=== PATIENT | male | born 1990 | race Caucasian/White ===

== ENCOUNTER 2017-06-29 22:56 | Emergency (ER) | payer SELFPAY ==
[2017-06-29] MEDS ORDERED: RX INFO: IV CONTRAST WAS GIVEN 1 EACH MISC MISCELLANE PRN (23:09)
[2017-06-29] MEDS ORDERED: KETOROLAC 30 MG/ML 1 ML VIAL IVP STA (23:12)
--- NOTE | 2017-06-29 23:21 | ED ---
ENT HPI - General Chief complaint: ENT Stated complaint: swollen throat Time Seen by Provider: 06/29/17 23:02 Source: patient Mode of arrival: ambulatory Limitations: no limitations - History of Present Illness Initial comments: Patient is a 27-year-old male presents with chief complaint sore throat for 2 days. Patient says that he feels his glands are swollen in the anterior lateral aspect of his neck. Patient admits to a subjective fever though he has not taken his temperature. Patient admits the pain is worse on the left side of his neck and the right. He states that there are sick contacts at work. He cannot identify any aggravating or alleviating factors. Timing is constant. Patient does state that it is difficult to swallow secondary to pain. He does not have any difficulty breathing. - Related Data Previous Rx's Medication Instructions Recorded RX: Penicillin V Potassium [Pen 500 mg PO TID #30 tablet 06/29/17 Vee K] Allergies Allergy/AdvReac Type Severity Reaction Status Date / Time No Known Allergies Allergy Verified 06/29/17 23:16 Review of Systems ROS Statement: Those systems with pertinent positive or pertinent negative responses have been documented in the HPI. ROS Other: All systems not noted in ROS Statement are negative. Constitutional: Reports: fever. Denies: chills Eyes: Denies: vision change ENT: Reports: throat pain Respiratory: Denies: cough Cardiovascular: Denies: chest pain Endocrine: Denies: fatigue Gastrointestinal: Denies: abdominal pain, nausea, vomiting Genitourinary: Denies: dysuria Musculoskeletal: Denies: back pain Skin: Denies: rash, lesions Neurological: Denies: headache Past Medical History Past Medical History: No Reported History History of Any Multi-Drug Resistant Organisms: None Reported Additional Past Surgical History / Comment(s): FINGER SURG Past Psychological History: No Psychological Hx Reported Smoking Status: Current every day smoker Past Alcohol Use History: None Reported Past Drug Use History: None Reported General Exam Limitations: no limitations General appearance: alert, in no apparent distress Head exam: Present: atraumatic, normocephalic Eye exam: Present: normal appearance ENT exam: Present: TM's normal bilaterally, other (Patient has a swollen left tonsil, there is very mild deviation of the uvula to the right side.) Neck exam: Present: tenderness (Patient has tenderness to palpation of the left submandibular glands) Respiratory exam: Present: normal lung sounds bilaterally Cardiovascular Exam: Present: regular rate, normal rhythm GI/Abdominal exam: Present: soft. Absent: distended, tenderness Rectal exam: Present: deferred Neurological exam: Present: alert, oriented X3 Psychiatric exam: Present: normal affect, normal mood Course Vital Signs 06/29/17 23:00 Temperature 100.4 F H Pulse Rate 94 Respiratory 18 Rate Blood Pressure 126/76 O2 Sat by Pulse 99 Oximetry Medical Decision Making - Medical Decision Making Patient presents with a chief complaint of throat pain. History and physical examination are concerning for possible peritonsillar abscess or retropharyngeal abscess. Patient be sent for a CT soft tissue of the neck. Basic labs, Toradol for pain, and a rapid strep swab. 11:[address] evaluation of the soft tissues of the neck show enlarged tonsils, and some retropharyngeal swelling. There is no drainable abscess. Patient was given his first dose of penicillin in the emergency department. Currently we're still pending lab work however patient will likely be discharged with instructions to follow-up with ENT. Patient was instructed to return to the emergency department if symptoms worsen or change. 12:01 AM Lab evaluation this patient is unremarkable except for mild white count. Rapid strep is negative. Regardless, patient will be treated with penicillin 3 times daily for 10 days. He'll be given ENT follow-up. I discussed the results and findings with the patient, he understands his discharge instructions. At this time, patient is stable for discharge. - Lab Data Result diagrams: 06/29/17 23:30 06/29/17 23:30 Lab Results 06/29/17 06/29/17 06/29/17 Range/Units 23:30 23:30 23:42 WBC 15.9 H (3.8-10.6) k/uL RBC 4.98 (4.30-5.90) m/uL Hgb 14.7 (13.0-17.5) gm/dL Hct 44.4 (39.0-53.0) % MCV 89.1 (80.0-100.0) fL MCH 29.5 (25.0-35.0) pg MCHC 33.1 (31.0-37.0) g/dL RDW 13.8 (11.5-15.5) % Plt Count 244 (150-450) k/uL Neutrophils % 79 % Lymphocytes % 10 % Monocytes % 7 % Eosinophils % 2 % Basophils % 0 % Neutrophils # 12.5 H (1.3-7.7) k/uL Lymphocytes # 1.6 (1.0-4.8) k/uL Monocytes # 1.2 H (0-1.0) k/uL Eosinophils # 0.3 (0-0.7) k/uL Basophils # 0.1 (0-0.2) k/uL Sodium 139 (137-145) mmol/L Potassium 3.9 (3.5-5.1) mmol/L Chloride 101 (98-107) mmol/L Carbon Dioxide 28 (22-30) mmol/L Anion Gap 10 mmol/L BUN 12 (9-20) mg/dL Creatinine 0.90 (0.66-1.25) mg/dL Est GFR (MDRD) Af Amer >60 (>60 ml/min/1.73 sqM) Est GFR (MDRD) Non-Af >60 (>60 ml/min/1.73 sqM) Glucose 133 H (74-99) mg/dL Calcium 9.4 (8.4-10.2) mg/dL Group A Strep Rapid Negative (Negative) Disposition Clinical Impression: Acute bacterial tonsillitis, Sore throat, Acute viral pharyngitis Disposition: HOME SELF-CARE Condition: Good Instructions: Tonsillitis (ED) Prescriptions: RX: Penicillin V Potassium [Pen Vee K] 500 mg PO TID #30 tablet Referrals: Ceci Torres MD [STAFF PHYSICIAN] - 1-2 days Bucky Lincoln MD [STAFF PHYSICIAN] - 1-2 days
--- NOTE | 2017-06-29 23:44 | CT ---
EXAMINATION TYPE: CT soft tissue neck w con DATE OF EXAM: 06/29/2017 11:34 PM COMPARISON: NONE HISTORY: Swollen glands CT DLP: 370.20 mGycm Automated exposure control for dose reduction was used. CONTRAST: CT scan of the neck is performed following with IV Contrast, patient injected with 100 mL of Omnipaqu e 300. Axial images are obtained, coronal and sagittal reformatted images are reviewed. FINDINGS: There is normal branching pattern of the great vessels on the aortic arch. Thyroid gland is symmetric . Carotid arteries and jugular veins are unremarkable. The parotid glands are symmetric. Submandibular salivary glands are symmetric. There is narrowing of the oropharyngeal airway bilaterally due to enlarged tonsils. Tonsils measure 3 x 2 cm. There is also retropharyngeal mild soft tissue swelling. This measures up to 8 mm in thickness. This is present at the C2-C3 level. There is no drainable fluid collection. The epiglottis appears normal. Subglottic trachea appears nor mal. The tongue appears normal. There is some thickening of the soft palate. There are bilateral enla rged anterior triangle cervical lymph nodes that measure up to 2 cm. IMPRESSION: Cervical adenopathy. Enlarged tonsils. Enlarged retropharyngeal soft tissues that is con sistent with pharyngitis. No evidence for retropharyngeal abscess. Hypertrophied adenoids.
[2017-06-29 23:46] LABS: Basophils # (A) 0.1 k/uL (0-0.2); Basophils % (A) 0 %; CH 29.2; CHCM 32.9; Eosinophils # (A) 0.3 k/uL (0-0.7); Eosinophils % (A) 2 %; HCT 44.4 % (39.0-53.0); HDW 2.38; HGB 14.7 gm/dL (13.0-17.5); Luc # (Auto) 0.17; Luc % (Auto) 1; Lymphocytes # (A) 1.6 k/uL (1.0-4.8); Lymphocytes % (A) 10 %; MCH 29.5 pg (25.0-35.0); MCHC 33.1 g/dL (31.0-37.0); MCV 89.1 fL (80.0-100.0); Mean Platelet Volume 8.7; Monocytes # (A) 1.2 k/uL (0-1.0); Monocytes % (A) 7 %; Neutrophils # (A) 12.5 k/uL (1.3-7.7); Neutrophils % (A) 79 %; RBC 4.98 m/uL (4.30-5.90); RDW 13.8 % (11.5-15.5); WBC 15.9 k/uL (3.8-10.6); WBC (Perox) 15.64
[2017-06-29] MEDS ORDERED: DEXAMETHASONE 4 MG TAB PO STA (23:51)
[2017-06-29] MEDS ORDERED: PENICILLIN V POTASSIUM 250 MG TAB PO STA (23:51)
[2017-06-29 23:55] LABS: Anion Gap 10 mmol/L; Blood Urea Nitrogen 12 mg/dL (9-20); Calcium 9.4 mg/dL (8.4-10.2); Carbon Dioxide 28 mmol/L (22-30); Chloride 101 mmol/L (98-107); Glucose 133 mg/dL (74-99); Non-African American GFR(MDRD) >60 (>60 ml/min/1.73 sqM); Potassium 3.9 mmol/L (3.5-5.1); Sodium 139 mmol/L (137-145)
[2017-06-30 00:14] VITALS: BP 126/78; PULSE 96; RESP 19; TEMP 100.6
== END 2017-06-30 00:14 | disposition home or self-care (01) ==
LOC: EC 22:56
DX: J03.80 Acute tonsillitis due to other specified organisms (principal); B96.89 Other specified bacterial agents as the cause of diseases classified elsewhere; F17.200 Nicotine dependence, unspecified, uncomplicated
CPT/HCPCS: 99284; 96374; 36415; 80048; 85025; 87081; 87430; 70491; J8540; J1885; Q9967

== ENCOUNTER 2018-05-20 02:05 | Emergency (ER) | payer BC ==
--- NOTE | 2018-05-20 02:49 | XR ---
EXAMINATION TYPE: XR chest 2V DATE OF EXAM: 05/20/2018 COMPARISON: NONE HISTORY: Cough TECHNIQUE: Frontal and lateral views of the chest are obtained. FINDINGS: Heart and mediastinum are normal. Lungs are clear. Diaphragm is normal. Bony thorax appear s normal. IMPRESSION: Normal chest.
[2018-05-20 02:56] VITALS: RESP 16
--- NOTE | 2018-05-20 03:21 | ED ---
URI HPI - General Chief Complaint: Upper Respiratory Infection Stated Complaint: cough Time Seen by Provider: 05/20/18 02:37 Source: patient, RN notes reviewed Mode of arrival: ambulatory Limitations: no limitations - History of Present Illness Initial Comments: This is a 27-year-old male who presents to the emergency department with chief complaint of cough x 1 day. Patient states that he has had postnasal drainage and a cough productive of clear sputum for one day. Denies fevers or chills. He states he is a nonsmoker. Denies chest pain or shortness of breath. Denies any past medical history and takes no medications. Patient also reports a runny nose, denies sore throat and ear pain. Denies abdominal pain, nausea or vomiting. Patient states that his young son also has a cold at this time. - Related Data Previous Rx's Medication Instructions Recorded Penicillin V Potassium [Pen Vee K] 500 mg PO TID #30 tablet 06/29/17 Allergies Allergy/AdvReac Type Severity Reaction Status Date / Time No Known Allergies Allergy Verified 05/20/18 02:20 Review of Systems ROS Statement: Those systems with pertinent positive or pertinent negative responses have been documented in the HPI. ROS Other: All systems not noted in ROS Statement are negative. Past Medical History Past Medical History: No Reported History History of Any Multi-Drug Resistant Organisms: None Reported Additional Past Surgical History / Comment(s): FINGER SURG Past Psychological History: No Psychological Hx Reported Smoking Status: Current every day smoker Past Alcohol Use History: None Reported Past Drug Use History: None Reported General Exam - General Exam Comments Initial Comments: General: Awake and alert, well-developed; in no apparent distress. Does not appear acutely ill. HEENT: Head atraumatic, normocephalic. Pupils are equal, round and reactive to light. Extraocular movements intact. Oropharynx moist without erythema or exudate. Neck: Supple. Normal ROM. Cardiovascular: Regular rate and rhythm. No murmurs, rubs or gallops. Chest symmetrical. Respiratory: Lungs clear to auscultation bilaterally. No wheezes, rales or rhonchi. Normal respiratory effort with no use of accessory muscles. Musculoskeletal: Normal ROM, no tenderness bilateral upper and lower extremities. Ambulating normally. Skin: [place], warm and dry without rashes or lesions. Neurological: Alert and oriented x3. CN II-XII grossly intact. Speech is fluent and answers are appropriate. No focal neuro deficits. Psychiatric: Normal mood and affect. No overt signs of depression or anxiety noted. Limitations: no limitations Course Vital Signs 05/20/18 05/20/18 02:18 02:52 Temperature 98.2 F Pulse Rate 82 Respiratory 18 16 Rate Blood Pressure 115/74 O2 Sat by Pulse 98 Oximetry Medical Decision Making - Medical Decision Making This is a 27-year-old male who presents to the emergency department with chief complaint of cough. Patient reports a cough and postnasal drainage for 1 day. Denies fevers or chills. Denies any medical issues. Lungs are clear to auscultation bilaterally. Chest x-ray reveals no acute abnormalities. Patient reports his son has also had similar symptoms. Patient likely suffering from the common cold. Recommended supportive treatment. Patient's vital signs are stable and he is in no acute distress. He will be discharged home at this time. He is in agreement and voices understanding. All questions were answered. Disposition Clinical Impression: Upper respiratory infection Disposition: HOME SELF-CARE Condition: Good Instructions: Upper Respiratory Infection (ED) Additional Instructions: Please follow up with primary care provider within 1-2 days. Return to emergency department if symptoms should worsen or any concerns arise. Is patient prescribed a controlled substance at d/c from ED?: No Referrals: None,Stated [Primary Care Provider] - 1-2 days Time of Disposition: 03:21
[2018-05-20 03:34] VITALS: BP 120/72; PULSE 80; TEMP 97.9
== END 2018-05-20 03:34 | disposition home or self-care (01) ==
LOC: EC 02:05
DX: J06.9 Acute upper respiratory infection, unspecified (principal); F17.200 Nicotine dependence, unspecified, uncomplicated
CPT/HCPCS: 71046; 99283

== ENCOUNTER 2024-09-09 11:02 | Emergency (ER) | payer OTHER ==
[2024-09-09] MEDS: SODIUM CHLORIDE 0.9% 1,000 ML IV STA (11:37)
[2024-09-09 11:43] LABS: Basophils # (A) 0.1 k/uL (0-0.2); Basophils % (A) 1 %; Eosinophils # (A) 0.4 k/uL (0-0.7); Eosinophils % (A) 5 %; HCT 50.4 % (39.0-53.0); HGB 16.8 gm/dL (13.0-17.5); Lymphocytes # (A) 2.5 k/uL (1.0-4.8); Lymphocytes % (A) 34 %; MCH 29.3 pg (25.0-35.0); MCHC 33.4 g/dL (31.0-37.0); MCV 87.8 fL (80.0-100.0); Mean Platelet Volume 8.6; Monocytes # (A) 0.4 k/uL (0-1.0); Monocytes % (A) 5 %; Neutrophils % (A) 54 %; Platelet Count 238 k/uL (150-450); RBC 5.74 m/uL (4.30-5.90); RDW 12.6 % (11.5-15.5); WBC 7.4 k/uL (3.8-10.6)
[2024-09-09 12:09] LABS: ALT 24 U/L (4-49); African American GFR (CKD) >90 (>60 ml/min/1.73 sqM); Anion Gap 11 mmol/L; Blood Urea Nitrogen 11 mg/dL (9-20); Carbon Dioxide 24 mmol/L (22-30); Chloride 105 mmol/L (98-107); Glucose 98 mg/dL (74-99); Non-African American GFR(CKD) >90 (>60 ml/min/1.73 sqM); Sodium 140 mmol/L (137-145); Total Bilirubin 1.2 mg/dL (0.2-1.3)
--- NOTE | 2024-09-09 12:15 | XR ---
EXAMINATION TYPE: XR chest 2V DATE OF EXAM: 09/09/2024 12:04 PM COMPARISON: 05/20/2018 CLINICAL INDICATION: Male, 34 years old with history of abdominal pain, dizziness, panic attack TECHNIQUE: PA and lateral views FINDINGS: The cardiomediastinal silhouette, aorta, and pulmonary vasculature are within normal limits. Lungs an d pleural spaces are clear. IMPRESSION: No acute cardiopulmonary process. [facility], Workstation: [email or web address], 09/09/2024 12:13 PM
[2024-09-09 12:20] LABS: Influenza A Not Detected (Not Detectd); Influenza B Not Detected (Not Detectd); RSV Not Detected (Not Detectd)
[2024-09-09 12:31] LABS: Potassium 4.7 mmol/L (3.5-5.1)
[2024-09-09 12:32] LABS: Alkaline Phosphatase <20 U/L (38-126); Magnesium 2.1 mg/dL (1.6-2.3)
[2024-09-09 12:33] LABS: AST 35 U/L (17-59)
--- NOTE | 2024-09-09 13:01 | ED ---
General Adult HPI - General Chief complaint: Anxiety Stated complaint: Dizziness Time Seen by Provider: 09/09/24 11:11 Source: patient, RN notes reviewed, old records reviewed Mode of arrival: ambulatory Limitations: no limitations - History of Present Illness Initial comments: Patient is a 34-year-old male who presents emergency department for evaluation of a concern for anxiety and lightheadedness. Patient had a lightheadedness episode at home today which then triggered a panic attack and anxiety. Overall feels improved at this time. He has had panic attacks in the past as well as generalized anxiety. Is not on any medications. He denies any chest pain, shortness of breath. Denies any abdominal pain, nausea, vomiting, headache. States he feels improved at this time but presents for evaluation at family request. Denies any fevers, cough. Presents for further evaluation at this time. Denies drug use. Denies alcohol use. Denies suicidal or homicidal ideations, attempts, plans. Denies any hallucinations. - Related Data Previous Rx's Medication Instructions Recorded Penicillin V Potassium [Pen Vee K] 500 mg PO TID #30 tablet 06/29/17 LORazepam [Ativan] 0.5 mg PO DAILY PRN 3 Days #3 tab 09/09/24 Allergies Allergy/AdvReac Type Severity Reaction Status Date / Time No Known Allergies Allergy Verified 09/09/24 11:07 Review of Systems ROS Statement: Those systems with pertinent positive or pertinent negative responses have been documented in the HPI. Review of Systems: CONST: Denies fever EYES: Denies blurry vision ENT: Denies nasal congestion C/V: Denies Chest pain RESP: Denies shortness of breath GI: Denies abdominal pain : Denies dysuria SKIN: Denies rash. MSK: Denies joint pain. NEURO: Denies headache ROS Other: All systems not noted in ROS Statement are negative. Past Medical History Past Medical History: No Reported History History of Any Multi-Drug Resistant Organisms: None Reported Additional Past Surgical History / Comment(s): FINGER SURG Past Psychological History: No Psychological Hx Reported Smoking Status: Current every day smoker Past Alcohol Use History: None Reported Past Drug Use History: None Reported General Exam - General Exam Comments Initial Comments: General: Appears in no acute distress. HEAD: Normal with no signs of head trauma. EYES: EOMI ENT: Hearing grossly intact, normal oropharynx. RESPIRATORY: Clear breath sounds bilaterally. No wheezes, rales, or rhonchi. C/V: Regular rate and rhythm. S1 and S2 auscultated, peripheral pulses 2+ and intact throughout ABD: Abd is soft, nontender, nondistended EXT: No obvious deformity SKIN: No rashes or lesions observed on exposed skin. NEURO: Alert and oriented x 4. Limitations: no limitations Course Vital Signs 09/09/24 09/09/24 09/09/24 11:05 11:21 13:13 Temperature 98.1 F 98.3 F Pulse Rate 109 H 98 Pulse Rate [ 96 Right Radial] Respiratory 20 18 Rate Blood Pressure 136/96 122/84 O2 Sat by Pulse 99 100 Oximetry Medical Decision Making - Medical Decision Making Was pt. sent in by a medical professional or institution ( PA, MANAGER ROOFING, urgent care, hospital, or care home...) When possible be specific @ -No Did you speak to anyone other than the patient for history (EMS, parent, family, police, friend...)? What history was obtained from this source @ -No Did you review nursing and triage notes (agree or disagree)? Why? @ -I reviewed and agree with nursing and triage notes Were old charts reviewed (outside hosp., previous admission, EMS record, old EKG, old radiological studies, urgent care reports/EKG's, care home records)? Report findings @ -No old charts were reviewed Differential Diagnosis (chest pain, altered mental status, abdominal pain women, abdominal pain men, vaginal bleeding, weakness, fever, dyspnea, syncope, headache, dizziness, GI bleed, back pain, seizure, CVA, palpatations, mental health, musculoskeletal)? @ -Anxiety, panic attack, dehydration. This list is not all inclusive. EKG interpreted by me (3pts min.). @ -As above X-rays interpreted by me (1pt min.). @ -Chest x-ray reveals no obvious acute cardiopulmonary process. CT interpreted by me (1pt min.). @ -None done U/S interpreted by me (1pt. min.). @ -None done What testing was considered but not performed or refused? (CT, X-rays, U/S, labs)? Why? @ -None What meds were considered but not given or refused? Why? @ -None Did you discuss the management of the patient with other professionals (professionals i.e. , PA, MANAGER ROOFING, lab, RT, psych nurse, pediatric social worker, carpenter assistant installer, teacher, licensed mortgage loan officer, case planner)? Give summary @ -No Was smoking cessation discussed for >3mins.? @ -No Was critical care preformed (if so, how long)? @ -No Were there social determinants of health that impacted care today? How? (Homelessness, low income, unemployed, alcoholism, drug addiction, transportation, low edu. Level, literacy, decrease access to med. care, detention, rehab)? @ -No Was there de-escalation of care discussed even if they declined (Discuss DNR or withdrawal of care, Hospice)? DNR status @ -No What co-morbidities impacted this encounter? (DM, HTN, Smoking, COPD, CAD, Cancer, CVA, ARF, Chemo, Hep., AIDS, mental health diagnosis, sleep apnea, morbid obesity)? @ -None Was patient admitted / discharged? Hospital course, mention meds given and route, prescriptions, significant lab abnormalities, going to OR and other pertinent info. @ -Patient presents for what seems like anxiety and panic attack symptoms. We will obtain basic labs, screening EKG and chest x-ray. He was in agreement this plan. Currently has no symptoms but does feel little anxious. I did offer Ativan which was declined. He will be given IV fluids. He was in agreement this plan. EKG shows no signs of acute ischemia. Laboratory studies are all within acceptable limits including negative viral swabs. Chest x-ray shows no obvious acute cardiopulmonary process. On reevaluation, patient is resting comfortably. We discussed his workup. He would like to go home. I believe this is reasonable. Strict return precautions discussed. Patient did accept a short-term prescription for 0.5 mg of Ativan. I will provide the patient with a prescription for Ativan. I instructed the p atient to follow up with their PCP in the next 1-3 days.. I explained that the patient should return to the emergency department if they experience any worsening symptoms. Strict return precautions were discussed with the patient. The patient expressed understanding of these instructions. I answered all questions that the patient had. The patient was discharged home in good condition with their prescriptions and follow up information. Undiagnosed new problem with uncertain prognosis? @ -No Drug Therapy requiring intensive monitoring for toxicity (Heparin, Nitro, Insulin, Cardizem)? @ -No Were any procedures done? @ -No Diagnosis/symptom? @ -Anxiety, lightheadedness Acute, or Chronic, or Acute on Chronic? @ -Acute on chronic Uncomplicated (without systemic symptoms) or Complicated (systemic symptoms)? @ -Uncomplicated Side effects of treatment? @ -No Exacerbation, Progression, or Severe Exacerbation? @ -No Poses a threat to life or bodily function? How? (Chest pain, [place], [place], pneumonia, PE, COPD, DKA, ARF, appy, cholecystitis, CVA, Diverticulitis, Homicidal, Suicidal, threat to staff... and all critical care pts) @ -Unlikely at this time - Lab Data Result diagrams: 09/09/24 11:36 09/09/24 11:36 Lab Results 09/09/24 09/09/24 09/09/24 Range/Units 11:36 11:36 11:36 WBC 7.4 (3.8-10.6) k/uL RBC 5.74 (4.30-5.90) m/uL Hgb 16.8 (13.0-17.5) gm/dL Hct 50.4 (39.0-53.0) % MCV 87.8 (80.0-100.0) fL MCH 29.3 (25.0-35.0) pg MCHC 33.4 (31.0-37.0) g/dL RDW 12.6 (11.5-15.5) % Plt Count 238 (150-450) k/uL MPV 8.6 Neutrophils % 54 % Lymphocytes % 34 % Monocytes % 5 % Eosinophils % 5 % Basophils % 1 % Neutrophils # 4.0 (1.3-7.7) k/uL Lymphocytes # 2.5 (1.0-4.8) k/uL Monocytes # 0.4 (0-1.0) k/uL Eosinophils # 0.4 (0-0.7) k/uL Basophils # 0.1 (0-0.2) k/uL Sodium 140 (137-145) mmol/L Potassium 4.7 (3.5-5.1) mmol/L Chloride 105 (98-107) mmol/L Carbon Dioxide 24 (22-30) mmol/L Anion Gap 11 mmol/L BUN 11 (9-20) mg/dL Creatinine 0.90 (0.66-1.25) mg/dL Est GFR (CKD-EPI)AfAm >90 (>60 ml/min/1.73 sqM) Est GFR (CKD-EPI)NonAf >90 (>60 ml/min/1.73 sqM) Glucose 98 (74-99) mg/dL Calcium 10.0 (8.4-10.2) mg/dL Magnesium 2.1 (1.6-2.3) mg/dL Total Bilirubin 1.2 (0.2-1.3) mg/dL AST 35 (17-59) U/L ALT 24 (4-49) U/L Alkaline Phosphatase <20 L (38-126) U/L Total Protein 8.0 (6.3-8.2) g/dL Albumin 5.0 (3.5-5.0) g/dL Influenza Type A (PCR) Not Detected (Not Detectd) Influenza Type B (PCR) Not Detected (Not Detectd) RSV (PCR) Not Detected (Not Detectd) SARS-CoV-2 (PCR) Not Detected (Not Detectd) - EKG Data -: EKG Interpreted by Me EKG Comments: 12-lead Electrocardiogram Interpretation Note EKG was reviewed and interpreted by myself. 12-lead ECG performed at 1111 is interpreted by me as revealing sinus tachycardia at a rate of 108 beats per minute. [place] is normal. [place] interval is 126 ms, QRS duration is 97 ms, QTc is 374 ms.. There were no ST or T wave abnormalities to suggest myocardial ischemia or injury. R wave progression across the precordium was satisfactory. By my interpretation this EKG is non-diagnostic for acute ischemia. Disposition Clinical Impression: Acute anxiety, Lightheadedness Disposition: HOME SELF-CARE Condition: Good Instructions (If sedation given, give patient instructions): Generalized Anxiety Disorder (ED) Prescriptions: LORazepam [Ativan] 0.5 mg PO DAILY PRN 3 Days #3 tab PRN Reason: Anxiety Is patient prescribed a controlled substance at d/c from ED?: Yes When asked, does pt state using other controlled substances?: No Referrals: [facility] [NON-STAFF] - 1-2 days [facility] [NON-STAFF] - 1-2 days (Contact office to become established with a primary care provider. ) None,Stated [Primary Care Provider] - 1-2 days Forms: [facility] PCPs Time of Disposition: 13:00
[2024-09-09 13:13] VITALS: BP 122/84; PULSE 98; RESP 18; TEMP 98.3
== END 2024-09-09 13:20 | disposition home or self-care (01) ==
LOC: EC 11:02
DX: F41.9 Anxiety disorder, unspecified (principal); R42 Dizziness and giddiness; R00.0 Tachycardia, unspecified; F17.200 Nicotine dependence, unspecified, uncomplicated; Z11.52 Encounter for screening for COVID-19
CPT/HCPCS: 36415; 71046; 80053; 83735; 85025; 87636; 93005; 96360; 99284